=== PATIENT | male | born 1985 | race Caucasian/White ===

== ENCOUNTER → 2017-06-30 | Outpatient (CLI) | payer BC | LOC: GMAM 10:19 | PROVIDERS: ATTEND Family Medicine | DX: R10.84 Generalized abdominal pain (principal) ==

== ENCOUNTER 2018-11-23 02:14 | Emergency (ER) | payer BC ==
[2018-11-23] MEDS ORDERED: LACTATED RINGERS 1,000 ML IVS ONE (02:25)
[2018-11-23] MEDS ORDERED: MORPHINE SULFATE INJ 10 MG/ML VIAL IV ONE ×2 (02:25→03:39)
[2018-11-23] MEDS ORDERED: TAMSULOSIN 0.4 MG CAP PO ONE (02:25)
[2018-11-23] MEDS ORDERED: KETOROLAC TROMETHAMINE INJ 30 MG/ML VIAL IV ONE (02:25)
--- NOTE | 2018-11-23 02:25 | ED.PDOC ---
History of Present Illness - General Chief Complaint: Abdominal Pain Stated Complaint: rt sided pain Time Seen by Provider: 11/23/18 02:20 Information Source: patient Exam Limitations: no limitations - History of Present Illness Initial Comments: Eugene Thakkar 33 y/o male came to ER with dull RLQ pain radiating to right flank onset 2 hours ago getting constant and worse which woke him up and unable to get him back to sleep.Stated had urinated before onset of pain and noted to be clear.No n/v constipation,dysuria,hematuria. Abdominal Pain Onset Location: RLQ Pain Radiation: flank, other - see hpi Quality: moderate, dull, steady Timing/Duration: 1-3 hours Improving Factors: nothing Worsening Factors: nothing Associated Symptoms: other - see hpi Review of Systems - Review of Systems Gastrointestinal/Abdominal: States: see HPI, abdominal pain All other Systems: Reviewed and Negative, No Change from Baseline Past Medical History (General) - Patient Medical History Hx Seizures: No Hx Asthma: No Hx Hypertension: No Surgical History: no surgical history - Vaccination History Hx Tetanus, Diphtheria Vaccination: Yes - less than 1 year ago Hx Influenza Vaccination: No - Social History Hx Tobacco Use: No Family Medical History - Family History Father Family History: Unknown Living Status: Unknown Hx Family;Other: kidney stone -brother Physical Exam - Physical Exam General Appearance: Alert, Anxious, No apparent distress Eyes, Ears, Nose, Throat Exam: normal ENT inspection Neck: normal inspection Respiratory: lungs clear, normal breath sounds Cardiovascular/Chest: normal peripheral pulses, regular rate, rhythm, no murmur Peripheral Pulses: No deficit Gastrointestinal/Abdominal: soft, no organomegaly, tenderness - RLQ,no peritoneal signs Male Genitalia: no hernia Back Exam: normal inspection, no CVA tenderness, no vertebral tenderness Extremity: no pedal edema Neurologic: alert, oriented x 3 Skin Exam: normal color, warm/dry Progress - Progress Progress: 11/23/18 03:04 Vital Signs - 8 hr 11/23/18 02:18 Temperature 97.2 F L Pulse Rate [ 82 right] Respiratory 20 Rate Blood Pressure 136/75 [left] O2 Sat by Pulse 99 Oximetry - Results/Orders Results/Orders: 11/23/18 02:25 IV Care:Saline Lock per Protoc QSHIFT 11/23/18 03:41 Sodium Chloride 0.9% 1000ML [Ns 1000 ml] 1,000 ml IVS ONCE Laboratory Results - last 24 hr 11/23/18 11/23/18 02:25 03:19 WBC 9.6 RBC 5.11 Hgb 15.6 Hct 46.3 MCV 90.5 MCH 30.5 MCHC 33.6 RDW 13.1 Plt Count 341 MPV 8.1 Absolute Neuts (auto) 4.80 Absolute Lymphs (auto) 3.10 Absolute Monos (auto) 0.90 H Absolute Eos (auto) 0.60 H Absolute Basos (auto) 0.10 Neutrophils % 50.4 Lymphocytes % 32.8 Monocytes % 9.2 H Eosinophils % 6.7 H Basophils % 0.9 PT 9.4 INR 0.94 PTT (SP) 23.3 Sodium 139 Potassium 3.3 L Chloride 103 Carbon Dioxide 24 Anion Gap 15.3 BUN 13 Creatinine 1.19 BUN/Creatinine Ratio 10.9 Random Glucose 115 H Serum Osmolality 278.6 Calcium 9.0 Magnesium 2.1 Total Bilirubin 0.7 Direct Bilirubin 0.1 Indirect Bilirubin 0.6 AST 36 ALT 35 Alkaline Phosphatase 77 Creatine Kinase 79 CK-MB (CK-2) 0.7 CK-MB (CK-2) % Not Reportable Troponin I < 0.02 Serum Total Protein 7.3 Albumin 4.2 Urine Color Yellow Urine Appearance Clear Urine pH 5.5 Ur Specific [place] >= 1.030 Urine Protein Negative Urine Glucose (UA) Negative Urine Ketones Negative Urine Blood Negative Urine Nitrite Negative Urine Bilirubin Negative Urine Urobilinogen 0.2 Ur Leukocyte Esterase Negative Urine RBC 0 Urine WBC 0 Ur Epithelial Cells 0-1 Urine Bacteria Rare Urine Mucus Small Discuss all test results with patient - EKG/XRAY/CT CT Ordered: Yes - abd /p-1-2 mm UVJ lithiasis Departure - Departure Clinical Impression: Ureteropelvic junction calculus, Flank pain, acute, Right lower quadrant abdominal pain Time of Disposition: 04:31 Disposition: Discharge to Home or Self Care Condition: Fair Departure Forms: ED Discharge - Pt. Copy, Patient Portal Self Enrollment Instructions: Kidney Stones (DC), How to Strain Your Urine Referrals: BRADLEY AVILEZ MD [Primary Care Provider] - 1-2 Weeks Prescriptions: Tamsulosin HCl [Flomax] 0.4 mg PO DAILY 5 Days #5 cap Home Medications: Ambulatory Orders Acetaminophen W/ Codeine [Acetaminophen/Codeine 300-30 mg] 1 tab PO Q6-8H PRN #30 tab 06/18/14 Tamsulosin HCl [Flomax] 0.4 mg PO DAILY 5 Days #5 cap 11/23/18 Additional Instructions: Return to Emergency room as needed;follow up with primary Md 26 November 2018 as needed
[2018-11-23] MEDS ORDERED: PROCHLORPERAZINE INJ 10 MG/2 ML VIAL IV ONE (03:40)
[2018-11-23] MEDS ORDERED: SODIUM CHLORIDE 0.9% 1000ML 1,000 ML IVS ONE (03:41)
--- NOTE | 2018-11-23 03:42 | CT ---
EXAM: CT Abdomen and Pelvis Without Intravenous Contrast CLINICAL HISTORY: The patient is 33 years old and is Male; RLQ pain TECHNIQUE: Axial computed tomography images of the abdomen and pelvis without intravenous contrast. Sagittal and coronal reformatted images were created and reviewed. This CT exam was performed using one or more of the following dose reduction techniques: automated exposure control, adjustment of the mA and/or kV according to patient size, and/or use of iterative reconstruction technique. COMPARISON: No relevant prior studies available. FINDINGS: LUNG BASES: Unremarkable. No mass. No consolidation. ABDOMEN: LIVER: Unremarkable. No obvious liver masses appreciated on this non-contrast exam. GALLBLADDER AND BILE DUCTS: Unremarkable. No calcified stones. No significant biliary ductal dilatation. PANCREAS: Unremarkable. No ductal dilation. SPLEEN: Unremarkable. No splenomegaly. ADRENALS: Unremarkable. No adrenal nodules or masses identified. KIDNEYS AND URETERS: Punctate right intrarenal stone. There is minimal right-sided hydronephrosis, perinephric stranding, and hydroureter. A punctate stone measuring 1 to 2 mm is visualized at the right ureterovesicular junction. The left kidney is unremarkable. STOMACH AND BOWEL: No evidence of bowel obstruction. No significant bowel wall thickening appreciated. PELVIS: APPENDIX: The appendix is unremarkable. BLADDER: The urinary bladder is nondistended. No stones. REPRODUCTIVE: Unremarkable as visualized. ABDOMEN and PELVIS: INTRAPERITONEAL SPACE: Unremarkable. No free air. No significant fluid collection. BONES/JOINTS: No acute fracture. No dislocation. SOFT TISSUES: No significant abnormalities in the superficial soft tissues. VASCULATURE: Unremarkable. No abdominal aortic aneurysm. LYMPH NODES: No significant lymph node enlargement. IMPRESSION: Right ureterovesicular junction stone with minimal associated hydronephrosis. Electronically signed by: Elaine Fitzgerald MD 11/23/2018 3:40 AM CDT
[2018-11-23] MEDS ORDERED: HYDROCOD/APAP 10/325 (ER DISP) # 3 tablets PO ONE (04:29)
[2018-11-23 04:33] VITALS: O2SAT 97
[2018-11-23 04:46] VITALS: BP 135/79; TEMP 97
== END 2018-11-23 04:46 | disposition home or self-care (01) ==
LOC: ER 02:14
DX: N13.2 Hydronephrosis with renal and ureteral calculous obstruction (principal); R10.31 Right lower quadrant pain
CPT/HCPCS: 74176; 80048; 80076; 81001; 82550; 82553; 84484; 85025; 85610; 85730; J0780; J1885; J2270; J7030; J7120

== ENCOUNTER → 2019-01-28 | Outpatient (CLI) | payer BC | LOC: GMAE 11:25 | PROVIDERS: ATTEND Family Medicine | DX: Z00.00 Encounter for general adult medical examination without abnormal findings (principal) ==

== ENCOUNTER → 2020-01-17 | Outpatient (CLI) | payer BC ==
--- NOTE | 2020-01-18 18:52 | US ---
EXAM DESCRIPTION: Abdomen,Complete: Ultrasound. CLINICAL HISTORY: 34 years Male RIGHT UPPER QUADRANT PAIN COMPARISON: None Available. TECHNIQUE: Transabdominal scanning: grayscale and Doppler modes. FINDINGS: Gallbladder: Echogenic objects adherent to the gallbladder wall and not gravity dependent measuring 2.9 and 3.1 mm, most likely polyps. No fluid around the gallbladder. No wall thickening. 2.3 mm. Non-tender with transducer pressure. Common bile duct: caliber 3.5 mm within normal limits. Liver: normal echogenicity; contour liver capsule smooth where seen. No fluid around the liver. Intrahepatic biliary ducts normal caliber. Doppler hepatopedal flow and normal caliber portal vein 9 mm.. Long axis right lobe 11.9 Pancreas: normal size and echogenicity. Duct not seen. Complete abdominal aorta: Normal caliber from the proximal segment to the distal bifurcation.. IVC: visualized and normal caliber. Right kidney: long axis measures 8.6 cm; volume 132.9 mL. Increased cortical echogenicity, less than liver. Normal cortical thickness. No echogenic stones: No hydronephrosis. Left kidney: long axis measures 9.6 cm; volume 147.1 mL. Increased cortical echogenicity, less than the liver. Normal cortical thickness. No echogenic stones, no hydronephrosis. Spleen: Normal. No focal lesions.. 10.5 cm long axis. Other: None. IMPRESSION: 1. Multiple polyps in the gallbladder. No wall thickening sludge or obvious stones. No surrounding fluid. Nontender with transducer pressure. Common bile duct normal caliber. Spleen is negative. 2. Liver and pancreas are unremarkable. Normal caliber of the abdominal aorta and the IVC. 3. Bilateral kidneys with normal cortical thickness and increased cortical echogenicity, but less than the liver. No stones or hydronephrosis. Electronically signed by: Solomon Zapata MD 01/18/2020 6:51 PM CDT
== END ==
LOC: US 10:00
PROVIDERS: ATTEND Family Medicine
DX: K82.4 Cholesterolosis of gallbladder (principal); N28.9 Disorder of kidney and ureter, unspecified